=== PATIENT | female | born 1940 | race Caucasian/White ===

== ENCOUNTER 2016-04-18 07:01 | Day surgery (SDC) | payer OTHER ==
[2016-04-13 21:34] LABS: BASOPHILS 0.7 %; BASOPHILS ABSOLUTE 0.05 10/3/uL (0.0-0.16); EOSINOPHILS 7.8 %; EOSINOPHILS ABSOLUTE 0.57 10/3/uL (0.0-0.53); HEMATOCRIT 42.2 % (36.0-48.0); HEMOGLOBIN 13.5 g/dL (12.0-16.0); IMMATURE GRANULOCYTES 0.1 %; IMMATURE GRANULOCYTES ABSOLUTE 0.01 10/3/uL (0.0-0.11); LYMPHOCYTES 31.6 %; LYMPHOCYTES ABSOLUTE 2.32 10/3/uL (0.67-4.30); MANUAL DIFF NO %; MEAN CORPUSCULAR HEMOGLOB 26.4 pg (26.0-34.0); MEAN CORPUSCULAR VOLUME 82.4 fL (80-100); MEAN PLATELET VOLUME 12.1 fL (9.2-13.0); MONOCYTES 8.7 %; MONOCYTES ABSOLUTE 0.64 10/3/uL (0.21-1.20); NEUTROPHILS 51.1 %; NEUTROPHILS ABSOLUTE 3.75 10/3/uL (2.02-8.40); PLATELET COUNT 182 10/3/uL (150-400); RBC DISTRIBUTION WIDTH 16.1 % (12.0-16.0); RED CELL COUNT 5.12 10/6/uL (4.0-5.6); WHITE BLOOD CELLS 7.3 10/3/uL (4.5-10.5)
[2016-04-13 21:35] LABS: BUN (BLOOD UREA NITROGEN) 14 MG/DL (6-23); CALCIUM, SERUM 9.4 MG/DL (8.5-10.4); CHLORIDE, SERUM 102 MMOL/L (96-112); CO2 (CARBON DIOXIDE) 28 MMOL/L (24-34); CREATININE 0.98 MG/DL (0.55-1.02); GFR AFRICAN AMERICAN 65 ML/MIN (>=60); GFR NON AFRICAN AMERICAN 56 ML/MIN (>=60); GLUCOSE, SERUM 120 MG/DL (60-99); POTASSIUM, SERUM 4.1 MMOL/L (3.5-5.3); SODIUM, SERUM 141 MMOL/L (135-148)
[2016-04-13 21:36] LABS: INTERNATIONAL NORMAL RATI 1.1 UNITS (-); PROTIME (NOT ORD) 14.1 SEC (12.0-14.5)
[2016-04-13 21:37] LABS: PARTIAL THROMBO TIME 34.6 SEC (22.5-37.2)
--- NOTE | ~2016-04-18 | OP ---
Record Of Operation [facility] [address] [place]. [address] NAME: CHOCO PEREZ : 40 STATUS : REG [facility] PAT#: [id number] AGE: 75 ADM/REG DATE : 04/18/16 MR#: [id number] REPORT SERV DATE: 04/19/16 DICTATED BY: ABDOULAYE ROJAS DATE: 04/19/16 REPORT STATUS : Draft TRANSCRIBED BY: ADDIE DATE: 04/19/16 DATE OF PROCEDURE: 04/18/2016 PREOPERATIVE DIAGNOSES: Hemoptysis and epistaxis along with chronic rhinosinusitis. POSTOPERATIVE DIAGNOSES: Hemoptysis and epistaxis along with chronic rhinosinusitis.. PROCEDURE PERFORMED: 1. Bilateral endoscopic ethmoidectomy. 2. Bilateral frontal sinusotomy. 3. Bilateral maxillary antrostomy. 4. Bilateral inferior turbinate reduction. 5. Direct laryngoscopy. 6. Rigid bronchoscopy. INDICATIONS AND SIGNIFICANT HISTORY: The patient is a 75-year-old female with significant history of multiple episodes of recurrent bright red hemoptysis and epistaxis. She was then evaluated in the clinic and was not found to have any substantial nasal lesions that were noted anteriorly within the nose. Imaging revealed chronic rhinosinusitis in the frontal ethmoid and maxillary sinuses. She was felt to benefit from surgical therapy along with cautery and laryngoscopy and bronchoscopy, did check for additional lesions within the oropharyngeal airway. OPERATIVE PROCEDURE AND FINDINGS: After informed consent was obtained, the patient was brought to the operating room and placed on the operating table in the supine position, at which point general endotracheal anesthesia was induced by the Anesthesia Service and the bed was turned 90 degrees toward the cloth shrinking machine operator. Through a Dedo laryngoscope, no lesions were noted in the posterior pharynx, lateral pharyngeal wall, base of tongue, epiglottis, supraglottis, or glottic regions. The endotracheal tube was withdrawn, and a rigid Woodard flor-lens telescope was inserted through the glottic larynx into the subglottic larynx and down to the renata. No lesions were noted in these areas. The endotracheal tube was then re-advanced. Attention was then turned toward the nasal cavity. The patient was turned back toward anesthesia at this point, and the nose was packed with Afrin-soaked pledgets. The right naris was addressed first. The uncinate process was incised along its vertical portion and the horizontal portion avulsed with the straight grasping forceps. Maxillary antrostomy was then enlarged. There was noted to be polypoid tissue within the right middle meatus region that was easily friable and bled readily whenever palpated. Ethmoid bulla was then entered with a J-curette and opened from anteriorly to posteriorly along the inferior border and then taken from the skull base posteriorly to anteriorly using a 45-degree Saad- Cut forceps. Attention was then turned toward the frontal recess where the frontal sinus outflow tract was cannulated with a lighted guidewire, which was advanced into the frontal region. A balloon sinuplasty was then performed, posteriorly dilating the frontal outflow tract upon withdrawal. There was noted to be some pus within the right maxillary sinus, but no other lesion was noted in the right maxillary sinus. Attention was then turned to the left nasal cavity where again polypoid debris was noted within the left middle meatus region. This was suctioned away with a suction shaver. Uncinectomy was performed along Record Of Operation [address] [address] NAME: CHOCO PEREZ : 40 STATUS : REG [facility] PAT#: [id number] AGE: 75 ADM/REG DATE : 04/18/16 MR#: [id number] REPORT SERV DATE: 04/19/16 DICTATED BY: ABDOULAYE ROJAS DATE: 04/19/16 REPORT STATUS : Draft TRANSCRIBED BY: MODJeanine DATE: 04/19/16 with ethmoidectomy in a similar fashion, followed by dilation of the frontal recess using balloon sinuplasty techniques to serially dilate the frontal outflow tract. Attention was then turned toward the inferior turbinoplasty. Head of the inferior turbinate was pierced with a suction shaver on the right first, followed by submucous resection, this was repeated on the left. At this point, the turbinates were medialized using a [place] septal displacer and lateralized using the same instrument. The patient then had PROPEL sinus stents placed bilaterally in the middle meatus. She was turned back toward anesthesia, aroused from anesthesia, and taken to the postanesthesia care unit in satisfactory condition. COMPLICATIONS: None. ESTIMATED BLOOD LOSS: 100 mL. IV FLUIDS: Per anesthesia. DLA/MODL Abdoulaye Rojas M.D. / [id number]
[~2016-04-18 07:01] MED LIST: ALBUTEROL0.63 MG/3 INH; ASAB PO; ATROVENTUD INH; BENTYL10 PO; BREO ELLIPTA INH; BUM1 PO; CELEXA20 PO; CENTRUM PO; CITRACAL PO; DETROLLA4 PO; FORTAMET500 MG PO; IBGARD PO; IPRATROPIUM BROMIDE INH; IRON325 MG PO; ISORDIL10 PO; KLOR-CON M2020 MEQ PO; LIPITOR40 PO; MEGA RED PO; PRILO PO; PULMICORT180 MCG INH; PULMICORT90 MCG INH; PULRESP.5 INH; REG PO; REM15 PO; T PO; TOPXL25 PO; V5 PO; VENTOLIN HFA INH; VITAMIN B PO; VITAMIN D2000 UNIT PO; VITC500 PO; VITD PO; VITE1000 PO; ZANTAC150 MG PO; ZYRTEC ALLGY10 MG PO; [UNRECOGNIZED DRUG - OTHER]
== END 2016-04-18 16:00 | disposition home or self-care (01) ==
LOC: SDC 07:01
PROVIDERS: Otolaryngology
PROC: 09QS4ZZ Repair Right Frontal Sinus, Percutaneous Endoscopic Approach (ICD-10-PCS; 2016-04-18)
PROC: 099R4ZZ Drainage of Left Maxillary Sinus, Percutaneous Endoscopic Approach (ICD-10-PCS; 2016-04-18)
PROC: 099Q4ZZ Drainage of Right Maxillary Sinus, Percutaneous Endoscopic Approach (ICD-10-PCS; 2016-04-18)
PROC: 09BL8ZZ Excision of Nasal Turbinate, Via Natural or Artificial Opening Endoscopic (ICD-10-PCS; 2016-04-18)
PROC: 0CJS8ZZ Inspection of Larynx, Via Natural or Artificial Opening Endoscopic (ICD-10-PCS; 2016-04-18)
PROC: 0BJ08ZZ Inspection of Tracheobronchial Tree, Via Natural or Artificial Opening Endoscopic (ICD-10-PCS; 2016-04-18)
PROC: 09DV4ZZ Extraction of Left Ethmoid Sinus, Percutaneous Endoscopic Approach (ICD-10-PCS; principal; 2016-04-18 08:45)
PROC: 09DU4ZZ Extraction of Right Ethmoid Sinus, Percutaneous Endoscopic Approach (ICD-10-PCS; 2016-04-18 08:45)
PROC: 09QT4ZZ Repair Left Frontal Sinus, Percutaneous Endoscopic Approach (ICD-10-PCS; 2016-04-18 08:45)
DX: J32.9 Chronic sinusitis, unspecified (principal); R04.2 Hemoptysis; R04.0 Epistaxis; I10 Essential (primary) hypertension; I25.10 Atherosclerotic heart disease of native coronary artery without angina pectoris; I25.2 Old myocardial infarction; E78.00 Pure hypercholesterolemia, unspecified; E78.5 Hyperlipidemia, unspecified; E11.9 Type 2 diabetes mellitus without complications; J44.9 Chronic obstructive pulmonary disease, unspecified; J45.909 Unspecified asthma, uncomplicated; G47.33 Obstructive sleep apnea (adult) (pediatric); M19.90 Unspecified osteoarthritis, unspecified site; K21.9 Gastro-esophageal reflux disease without esophagitis; K29.70 Gastritis, unspecified, without bleeding; K58.9 Irritable bowel syndrome, unspecified; F32.9 Major depressive disorder, single episode, unspecified; Z98.890 Other specified postprocedural states; Z90.710 Acquired absence of both cervix and uterus; Z90.49 Acquired absence of other specified parts of digestive tract; Z82.5 Family history of asthma and other chronic lower respiratory diseases; Z83.3 Family history of diabetes mellitus; Z80.9 Family history of malignant neoplasm, unspecified; Z82.49 Family history of ischemic heart disease and other diseases of the circulatory system; Z95.1 Presence of aortocoronary bypass graft; Z87.891 Personal history of nicotine dependence; Z99.89 Dependence on other enabling machines and devices; Z88.5 Allergy status to narcotic agent; Z88.8 Allergy status to other drugs, medicaments and biological substances; Z91.040 Latex allergy status; Z79.51 Long term (current) use of inhaled steroids; Z79.84 Long term (current) use of oral hypoglycemic drugs; Z79.899 Other long term (current) drug therapy; Z98.41 Cataract extraction status, right eye; Z98.42 Cataract extraction status, left eye; Z96.1 Presence of intraocular lens; Z97.2 Presence of dental prosthetic device (complete) (partial)
CPT/HCPCS: 36415; 80048; 82962; 85025; 85610; 85730; 88305; 88312; 93005; 94640; A9270-GY; C1726; C2625; J2710; J3010